=== PATIENT | male | born 1965 | race Caucasian/White ===

== ENCOUNTER 2017-12-22 10:30 | Emergency (ER) | payer BC ==
[2017-12-22 10:46] VITALS: BP 121/72
== END 2017-12-22 12:23 | disposition left against medical advice (07) ==
LOC: UCEAST 10:30
DX: S89.90XA Unspecified injury of unspecified lower leg, initial encounter (principal); X58.XXXA Exposure to other specified factors, initial encounter; Y93.9 Activity, unspecified; Y92.9 Unspecified place or not applicable; Z53.21 Procedure and treatment not carried out due to patient leaving prior to being seen by health care provider